=== PATIENT | male | born 1960 | race Hispanic/Latino ===

== ENCOUNTER 2020-08-02 08:55 | Emergency (ER) | payer MEDICARE ==
[2020-08-02 09:17] LABS: BASOPHILS % (AUTO) 0.8 % (0.0-5.0); EOSINOPHILS % (AUTO) 1.7 % (0.0-8.0); HEMATOCRIT 43.9 % (42-54); LYMPHOCYTES % (AUTO) 21.6 % (21.0-51.0); MEAN CORPUSCULAR HEMOGLOBIN 29.1 pg (27.0-33.0); MEAN CORPUSCULAR HGB CONC 32.8 g/dL (32.0-36.0); MEAN CORPUSCULAR VOLUME 88.7 fL (79-99); MONOCYTES % (AUTO) 6.2 % (3.0-13.0); NEUTROPHILS % (AUTO) 69.5 % (40.0-77.0); PLATELET COUNT (AUTO) 237 K/uL (130-400); RED BLOOD CELL COUNT(AUTO) 4.95 MIL/uL (4.50-6.20); RED CELL DISTRIBUTION WIDTH 13.8 % (11.0-15.5); WHITE BLOOD COUNT (AUTO) 8.3 K/uL (4.8-10.8)
[2020-08-02 09:23] LABS: POTASSIUM 4.1 mmol/L (3.5-5.1)
[2020-08-02 09:29] LABS: ALBUMIN 3.5 g/dL (3.5-5.0); BILIRUBIN,TOTAL 0.4 mg/dL (0.2-1.0); TOTAL PROTEIN, SERUM 6.7 g/dL (6.0-8.3)
[2020-08-02 10:18] LABS: CREATINE KINASE, TOTAL 136 U/L (21-232)
[2020-08-02 10:20] LABS: ACETAMINOPHEN < 1 mcg/mL (10-29); ALCOHOL, BLOOD < 3 mg/dL (0-10); SALICYLATE < 2.8 mg/dL (2.8-20.0)
[2020-08-02 10:44] LABS: BILIRUBIN,URINE Negative (NEGATIVE); COLOR,URINE Yellow (YELLOW); GLUCOSE, URINE (UA) Negative (NEGATIVE); KETONES,URINE Negative (NEGATIVE); LEUKOCYTE ESTERASE ,URINE Negative (NEGATIVE); NITRATE,URINE Negative (NEGATIVE); OCCULT BLOOD,URINE Negative (NEGATIVE); PROTEIN,URINE Negative (NEGATIVE)
[2020-08-02 10:51] LABS: AMPHET/METH SCREEN,URINE NEGATIVE (NEGATIVE); BARBITURATE SCREEN, URINE NEGATIVE (NEGATIVE); BENZODIAZEPINES SCREEN,URINE POSITIVE (NEGATIVE); CANNABINOID SCREEN,URINE NEGATIVE (NEGATIVE); COCAINE SCREEN,URINE NEGATIVE (NEGATIVE); OPIATE SCREEN,URINE NEGATIVE (NEGATIVE); PHENCYCLIDINE SCREEN,URINE NEGATIVE (NEGATIVE)
[2020-08-02 11:22] LABS: APPEARANCE,URINE CLEAR (CLEAR)
== END 2020-08-02 12:38 | disposition home or self-care (01) ==
LOC: EDH 08:55
DX: R40.4 Transient alteration of awareness (principal); E11.9 Type 2 diabetes mellitus without complications; I10 Essential (primary) hypertension; Z79.899 Other long term (current) drug therapy
CPT/HCPCS: 36415; 70450; 80053; 80305; 81003; 82140; 82550; 84484; 85025; 93005; 99285; G0481

== ENCOUNTER 2020-08-03 07:08 | Emergency (ER) | payer MEDICARE, OTHER ==
[2020-08-03 08:42] LABS: APPEARANCE,URINE Clear (CLEAR); BILIRUBIN,URINE Negative (NEGATIVE); COLOR,URINE Yellow (YELLOW); GLUCOSE, URINE (UA) Negative (NEGATIVE); KETONES,URINE Negative (NEGATIVE); LEUKOCYTE ESTERASE ,URINE Trace (NEGATIVE); NITRATE,URINE Negative (NEGATIVE); OCCULT BLOOD,URINE Negative (NEGATIVE); PH,URINE 6.5 (5.0-8.0); PROTEIN,URINE Negative (NEGATIVE)
[2020-08-03 08:48] LABS: BASOPHILS % (AUTO) 0.7 % (0.0-5.0); EOSINOPHILS % (AUTO) 1.7 % (0.0-8.0); HEMATOCRIT 43.9 % (42-54); LYMPHOCYTES % (AUTO) 20.9 % (21.0-51.0); MEAN CORPUSCULAR HEMOGLOBIN 29.4 pg (27.0-33.0); MEAN CORPUSCULAR HGB CONC 33.3 g/dL (32.0-36.0); MEAN CORPUSCULAR VOLUME 88.3 fL (79-99); MONOCYTES % (AUTO) 4.6 % (3.0-13.0); NEUTROPHILS % (AUTO) 71.8 % (40.0-77.0); PLATELET COUNT (AUTO) 241 K/uL (130-400); RED BLOOD CELL COUNT(AUTO) 4.97 MIL/uL (4.50-6.20); RED CELL DISTRIBUTION WIDTH 13.8 % (11.0-15.5); WHITE BLOOD COUNT (AUTO) 7.6 K/uL (4.8-10.8)
[2020-08-03 08:48] LABS: BACTERIA,URINE Rare /HPF (None Seen); RBC,URINE 0-1 /HPF (0-1); SQUAMOUS EPITHELIAL CELL,UR Rare /HPF (0-2); WBC,URINE 0-1 /HPF (0-1)
[2020-08-03 08:53] LABS: AMPHET/METH SCREEN,URINE NEGATIVE (NEGATIVE); BARBITURATE SCREEN, URINE NEGATIVE (NEGATIVE); BENZODIAZEPINES SCREEN,URINE POSITIVE (NEGATIVE); CANNABINOID SCREEN,URINE NEGATIVE (NEGATIVE); COCAINE SCREEN,URINE NEGATIVE (NEGATIVE); OPIATE SCREEN,URINE NEGATIVE (NEGATIVE); PHENCYCLIDINE SCREEN,URINE NEGATIVE (NEGATIVE)
[2020-08-03 09:52] LABS: CARBON DIOXIDE 30 mmol/L (21-32); CHLORIDE 102 mmol/L (101-111); CREATININE 0.9 mg/dL (0.5-1.5); GLOMERULAR FILTR. RATE CALC 91 mL/min (>60); GLUCOSE,RANDOM 126 mg/dL (70-105); POTASSIUM 3.9 mmol/L (3.5-5.1); SODIUM SERUM 137 mmol/L (136-145); UREA NITROGEN, BLOOD 12 mg/dL (7-18)
[2020-08-03 09:56] LABS: ALANINE AMINOTRANSFERASE 65 U/L (12-78); ALBUMIN 3.7 g/dL (3.5-5.0); ASPARTATE AMINOTRANSFERASE 32 U/L (10-37); BILIRUBIN,TOTAL 0.5 mg/dL (0.2-1.0)
[2020-08-03 09:57] LABS: SALICYLATE < 2.8 mg/dL (2.8-20.0)
[2020-08-03 09:58] LABS: ACETAMINOPHEN < 1 mcg/mL (10-29); ALCOHOL, BLOOD < 3 mg/dL (0-10)
== END 2020-08-03 13:45 | disposition home or self-care (01) ==
LOC: EDH 07:08
DX: F32.9 Major depressive disorder, single episode, unspecified (principal); F41.9 Anxiety disorder, unspecified; E11.9 Type 2 diabetes mellitus without complications; E78.00 Pure hypercholesterolemia, unspecified; I10 Essential (primary) hypertension; Z72.0 Tobacco use
CPT/HCPCS: 36415; 80053; 80305; 81001; 85025; 99283; G0481

== ENCOUNTER 2020-08-26 13:59 | Emergency (ER) | payer MEDICARE, OTHER ==
[2020-08-26 14:57] LABS: BASOPHILS % (AUTO) 0.3 % (0.0-5.0); EOSINOPHILS % (AUTO) 0.2 % (0.0-8.0); HEMATOCRIT 42.4 % (42-54); LYMPHOCYTES % (AUTO) 19.7 % (21.0-51.0); MEAN CORPUSCULAR HEMOGLOBIN 29.6 pg (27.0-33.0); MEAN CORPUSCULAR HGB CONC 33.3 g/dL (32.0-36.0); MEAN CORPUSCULAR VOLUME 88.9 fL (79-99); MONOCYTES % (AUTO) 3.2 % (3.0-13.0); NEUTROPHILS % (AUTO) 76.3 % (40.0-77.0); PLATELET COUNT (AUTO) 199 K/uL (130-400); RED BLOOD CELL COUNT(AUTO) 4.77 MIL/uL (4.50-6.20); RED CELL DISTRIBUTION WIDTH 13.1 % (11.0-15.5); WHITE BLOOD COUNT (AUTO) 6.2 K/uL (4.8-10.8)
[2020-08-26 15:09] LABS: CARBON DIOXIDE 26 mmol/L (21-32); CHLORIDE 104 mmol/L (101-111); CREATININE 0.9 mg/dL (0.5-1.5); GLOMERULAR FILTR. RATE CALC 91 mL/min (>60); GLUCOSE,RANDOM 115 mg/dL (70-105); POTASSIUM 4.3 mmol/L (3.5-5.1); SODIUM SERUM 139 mmol/L (136-145); UREA NITROGEN, BLOOD 16 mg/dL (7-18)
[2020-08-26 15:13] LABS: ALANINE AMINOTRANSFERASE 29 U/L (12-78); ALBUMIN 3.4 g/dL (3.5-5.0); ASPARTATE AMINOTRANSFERASE 16 U/L (10-37); BILIRUBIN,TOTAL 0.2 mg/dL (0.2-1.0); CREATINE KINASE, TOTAL 54 U/L (21-232)
[2020-08-26 15:14] LABS: ACETAMINOPHEN < 1 mcg/mL (10-29); SALICYLATE < 2.8 mg/dL (2.8-20.0)
[2020-08-26 15:35] LABS: INR 0.96 (0.85-1.15); PARTIAL THROMBOPLASTIN TIME 25.1 SEC (26.3-35.5); PROTHROMBIN TIME 10.4 SEC (9.6-11.6)
[2020-08-26 15:58] LABS: APPEARANCE,URINE Clear (CLEAR); BILIRUBIN,URINE Negative (NEGATIVE); COLOR,URINE Yellow (YELLOW); GLUCOSE, URINE (UA) Negative (NEGATIVE); KETONES,URINE Negative (NEGATIVE); LEUKOCYTE ESTERASE ,URINE Negative (NEGATIVE); NITRATE,URINE Negative (NEGATIVE); OCCULT BLOOD,URINE Negative (NEGATIVE); PH,URINE 5.5 (5.0-8.0); PROTEIN,URINE Negative (NEGATIVE); UROBILINOGEN,URINE 0.2 mg/dL (0.2-1.0)
[2020-08-26 16:40] LABS: AMPHET/METH SCREEN,URINE NEGATIVE (NEGATIVE); BARBITURATE SCREEN, URINE NEGATIVE (NEGATIVE); BENZODIAZEPINES SCREEN,URINE POSITIVE (NEGATIVE); CANNABINOID SCREEN,URINE NEGATIVE (NEGATIVE); COCAINE SCREEN,URINE NEGATIVE (NEGATIVE); OPIATE SCREEN,URINE NEGATIVE (NEGATIVE); PHENCYCLIDINE SCREEN,URINE NEGATIVE (NEGATIVE)
== END 2020-08-26 23:42 | disposition short-term general hospital (02) ==
LOC: EDH 13:59
DX: T42.4X2A Poisoning by benzodiazepines, intentional self-harm, initial encounter (principal); F32.2 Major depressive disorder, single episode, severe without psychotic features; E13.8 Other specified diabetes mellitus with unspecified complications; I10 Essential (primary) hypertension; F41.9 Anxiety disorder, unspecified; Y92.89 Other specified places as the place of occurrence of the external cause
CPT/HCPCS: 36415; 80053; 80305; 81003; 82550; 84484; 85025; 85610; 85730; 93005; 99285; G0481

== ENCOUNTER 2022-02-08 06:11 | Day surgery (SDC) | payer OTHER ==
[2022-02-06 11:22] LABS: BASOPHILS % (AUTO) 0.8 % (0.0-5.0); EOSINOPHILS % (AUTO) 3.4 % (0.0-8.0); HEMATOCRIT 42.3 % (42-54); MEAN CORPUSCULAR HEMOGLOBIN 29.6 pg (27.0-33.0); MEAN CORPUSCULAR HGB CONC 33.3 g/dL (32.0-36.0); MEAN CORPUSCULAR VOLUME 88.7 fL (79-99); MONOCYTES % (AUTO) 4.5 % (3.0-13.0); PLATELET COUNT (AUTO) 218 K/uL (130-400); RED BLOOD CELL COUNT(AUTO) 4.77 MIL/uL (4.50-6.20); RED CELL DISTRIBUTION WIDTH 13.2 % (11.0-15.5); WHITE BLOOD COUNT (AUTO) 7.2 K/uL (4.8-10.8)
[2022-02-06 11:30] LABS: CREATININE 0.8 mg/dL (0.5-1.5); POTASSIUM 3.9 mmol/L (3.5-5.1)
[2022-02-07 11:04] VITALS: BP 129/68
[2022-02-08] VITALS (16 sets, daily range): BP systolic 122–147; BP diastolic 65–97
[~2022-02-08] VITALS: Ht 172.7 cm; Wt 99.2 kg
[~2022-02-08 06:11] MED LIST: ALPR0.5T PO; BUPR-49 PO; BUSP15TA3 PO; CARV6.25 PO; CILO50TA PO; CITA-108 PO; GABA-529 PO; HYDR25TA PO; IBUP-2071 PO; LISI40TA9 PO; METF-444 PO; TRAZ-187 PO
[2022-02-08] MEDS ORDERED: 0.9%NACL 1000ML 1,000 ML IV ONE (06:29)
[2022-02-08] MEDS ORDERED: CEFAZOLIN SODIUM 1 GM VIAL ONE (06:29)
[2022-02-08] MEDS ORDERED: CEFAZOLIN SODIUM 1 GM VIAL IVP ONE (08:00)
[2022-02-08] MEDS ORDERED: PROPOFOL 10 MG/ML 20ML VIAL IV ONE (08:31)
[2022-02-08] MEDS ORDERED: FENTANYL CITRATE PF 50 MCG/1 ML 2ML VIAL ONE (08:31)
[2022-02-08] MEDS ORDERED: SUCCINYLCHOLINE CHLORIDE 20 MG/ML 10 ML VIAL ONE (08:31)
[2022-02-08] MEDS ORDERED: LIDOCAINE PF 100MG/5ML (2%) SYRINGE 5ML ONE (08:31)
[2022-02-08] MEDS ORDERED: ROCURONIUM 10MG/1ML SYR 10 MG/ML ML ONE (08:32)
[2022-02-08] MEDS ORDERED: MIDAZOLAM HCL 1 MG/ML 2ML VIAL ONE (08:32)
[2022-02-08] MEDS ORDERED: CEFAZOLIN SODIUM 2 GM VIAL IV ONE (08:41)
[2022-02-08] MEDS ORDERED: EPINEPHRINE 1 MG/ML 30ML VIAL IJ ONE ×2 (08:53→09:17)
[2022-02-08] MEDS ORDERED: EPHEDRINE SULFATE 50 MG/ML AMPULE ONE (09:37)
[2022-02-08] MEDS ORDERED: HYDR-4060 PO (10:26)
[2022-02-08] MEDS ORDERED: CEPH500B PO (10:26)
[2022-02-08] MEDS ORDERED: GLYCOPYRROLATE 1 MG/5 ML SYRINGE ONE (10:27)
[2022-02-08] MEDS ORDERED: NEOSTIGMINE 5MG/5ML SYR IV ONE (10:27)
[2022-02-08] MEDS ORDERED: MEPERIDINE-PF 25 MG/ML SYG ONE ×2 (10:42→11:07)
[2022-02-08] MEDS ORDERED: KETOROLAC 30MG VIAL (30MG/ML) ONE (10:42)
== END 2022-02-08 13:00 | disposition home or self-care (01) ==
LOC: DAH 06:11
PROVIDERS: ATTEND Orthopaedic Surgery
DX: M19.012 Primary osteoarthritis, left shoulder (principal); M75.42 Impingement syndrome of left shoulder; M65.812 Other synovitis and tenosynovitis, left shoulder; G89.29 Other chronic pain; E66.01 Morbid (severe) obesity due to excess calories; E11.9 Type 2 diabetes mellitus without complications; I10 Essential (primary) hypertension; F41.9 Anxiety disorder, unspecified; F32.9 Major depressive disorder, single episode, unspecified; E78.5 Hyperlipidemia, unspecified; G47.00 Insomnia, unspecified; Z79.01 Long term (current) use of anticoagulants; Z88.0 Allergy status to penicillin; Z79.899 Other long term (current) drug therapy
CPT/HCPCS: 29820; 29824; 29826; 36415; 64415; 76942; 80048; 82948 ×2; 85025; 87635; A4213; A4215; A4221; A4222; A4223; A4565; A4600; A4649; A4663; A4930 ×3; A5120; A6204; C9803; G0168; J0171 ×2; J0330; J0690 ×2; J1885; J2001; J2175 ×2; J2250; J2704; J2710; J3010; J3490 ×2; J7030 ×2

== ENCOUNTER → 2022-04-27 | Outpatient (CLI) | payer OTHER ==
[~2022-04-27] MED LIST changes: +CEPH500B PO; +GADOTERATE MEGLUMINE 10 MMOL/20 ML VIAL IV ONE; +HYDR-4060 PO
== END | disposition home or self-care (01) ==
LOC: RAH 12:47
PROVIDERS: ATTEND Family Medicine
DX: M47.812 Spondylosis without myelopathy or radiculopathy, cervical region (principal); M48.02 Spinal stenosis, cervical region; M50.30 Other cervical disc degeneration, unspecified cervical region
CPT/HCPCS: 72156; A9575

== ENCOUNTER 2022-06-01 13:03 | Emergency (ER) | payer OTHER ==
[~2022-06-01] VITALS: Ht 172.7 cm; Wt 98.4 kg
[~2022-06-01 13:03] MED LIST changes: -GADOTERATE MEGLUMINE 10 MMOL/20 ML VIAL IV ONE
[2022-06-01 13:06] VITALS: BP 116/72
== END 2022-06-01 15:51 | disposition left against medical advice (07) ==
LOC: EDH 13:03
DX: M54.2 Cervicalgia (principal); Z53.21 Procedure and treatment not carried out due to patient leaving prior to being seen by health care provider

== ENCOUNTER 2022-12-31 20:13 | Emergency (ER) | payer OTHER ==
[~2022-12-31] VITALS: Ht 172.7 cm; Wt 100.7 kg
[~2022-12-31 20:13] MED LIST changes: -CILO50TA PO; +CILO50TA2 PO
[2022-12-31] MEDS ORDERED: 0.9%NACL 1000ML 1,000 ML IV SCH (20:30)
[2022-12-31 21:02] LABS: BASOPHILS % (AUTO) 0.6 % (0.0-5.0); EOSINOPHILS % (AUTO) 1.7 % (0.0-8.0); HEMATOCRIT 42.4 % (42-54); LYMPHOCYTES % (AUTO) 25.3 % (21.0-51.0); MEAN CORPUSCULAR HGB CONC 33.5 g/dL (32.0-36.0); MEAN CORPUSCULAR VOLUME 89.5 fL (79-99); MONOCYTES % (AUTO) 4.7 % (3.0-13.0); NEUTROPHILS % (AUTO) 67.4 % (40.0-77.0); PLATELET COUNT (AUTO) 197 K/uL (130-400); RED BLOOD CELL COUNT(AUTO) 4.74 MIL/uL (4.50-6.20); RED CELL DISTRIBUTION WIDTH 12.8 % (11.0-15.5); WHITE BLOOD COUNT (AUTO) 7.2 K/uL (4.8-10.8)
[2022-12-31 21:13] LABS: CREATININE 0.9 mg/dL (0.5-1.5); POTASSIUM 3.4 mmol/L (3.5-5.1)
[2022-12-31 21:18] LABS: ALBUMIN 3.7 g/dL (3.5-5.0); TOTAL PROTEIN, SERUM 6.7 g/dL (6.0-8.3)
[2022-12-31 21:18] LABS: APPEARANCE,URINE CLEAR (CLEAR); BILIRUBIN,URINE NEGATIVE (NEGATIVE); COLOR,URINE YELLOW (YELLOW); GLUCOSE, URINE (UA) NEGATIVE (NEGATIVE); KETONES,URINE NEGATIVE (NEGATIVE); LEUKOCYTE ESTERASE ,URINE NEGATIVE Leu/uL (NEGATIVE); MUCUS,URINE RARE LPF (None Seen); NITRATE,URINE NEGATIVE (NEGATIVE); OCCULT BLOOD,URINE NEGATIVE (NEGATIVE); PH,URINE 5.5 (5.0-8.0); PROTEIN,URINE NEGATIVE (NEGATIVE); RBC,URINE 0-1 /HPF (0-1); SQUAMOUS EPITHELIAL CELL,UR RARE /HPF (0-2); UROBILINOGEN,URINE 0.2 mg/dL (0.2-1.0)
[2022-12-31 22:23] VITALS: BP 132/70
[2022-12-31] MEDS ORDERED: POTASSIUM BICARB/CIT AC 25 MEQ TABLET.EFF PO ONE (22:30)
== END 2022-12-31 22:35 | disposition home or self-care (01) ==
LOC: EDH 20:13
DX: R53.1 Weakness (principal); E87.6 Hypokalemia; I10 Essential (primary) hypertension; E78.00 Pure hypercholesterolemia, unspecified; E11.9 Type 2 diabetes mellitus without complications; Z79.1 Long term (current) use of non-steroidal anti-inflammatories (NSAID); Z79.84 Long term (current) use of oral hypoglycemic drugs; Z79.899 Other long term (current) drug therapy; Z20.822 Contact with and (suspected) exposure to COVID-19
CPT/HCPCS: 99285; 71045; 87635; 84484; 80053; 83690; 85025; 82948; 81001; 36415; 93005; C9803

== ENCOUNTER 2023-07-25 06:16 | Observation (INO) | payer OTHER ==
[2023-07-17 15:20] LABS: APPEARANCE,URINE CLEAR (CLEAR); BILIRUBIN,URINE NEGATIVE (NEGATIVE); COLOR,URINE YELLOW (YELLOW); GLUCOSE, URINE (UA) NEGATIVE (NEGATIVE); KETONES,URINE NEGATIVE (NEGATIVE); LEUKOCYTE ESTERASE ,URINE 25 Leu/uL (NEGATIVE); NITRATE,URINE NEGATIVE (NEGATIVE); OCCULT BLOOD,URINE NEGATIVE (NEGATIVE); PROTEIN,URINE 30 mg/dL (NEGATIVE); UROBILINOGEN,URINE 3 mg/dL (0.2-1.0)
[2023-07-17 15:21] LABS: ADD UA MICROSCOPIC YES
[2023-07-17 15:23] LABS: BACTERIA,URINE RARE /HPF (None Seen); MUCUS,URINE MOD LPF (None Seen); SQUAMOUS EPITHELIAL CELL,UR RARE /HPF (0-2)
[2023-07-17 16:44] VITALS: BP 180/100; PULSE 71; RESP 20
[2023-07-23 11:05] LABS: BASOPHILS # (AUTO) 0.04 K/uL (0.00-0.20); BASOPHILS % (AUTO) 0.5 % (0.0-5.0); EOSINOPHILS # (AUTO) 0.07 K/uL (0.00-0.70); EOSINOPHILS % (AUTO) 0.8 % (0.0-8.0); HEMATOCRIT 48.3 % (42-54); IMMATURE GRANULOCYTE ABSOLUTE 0.03 K/uL (0-1); LYMPHOCYTES # (AUTO) 2.1 K/uL (1.0-4.8); LYMPHOCYTES % (AUTO) 24.4 % (21.0-51.0); MEAN CORPUSCULAR HEMOGLOBIN 30.7 pg (27.0-33.0); MEAN CORPUSCULAR HGB CONC 33.5 g/dL (32.0-36.0); MEAN CORPUSCULAR VOLUME 91.7 fL (79-99); MONOCYTES # (AUTO) 0.6 K/uL (0.1-1.0); MONOCYTES % (AUTO) 7.1 % (3.0-13.0); NEUTROPHILS # (AUTO) 5.7 K/uL (1.8-7.7); NEUTROPHILS % (AUTO) 66.8 % (40.0-77.0); PLATELET COUNT (AUTO) 281 K/uL (130-400); RED BLOOD CELL COUNT(AUTO) 5.27 MIL/uL (4.50-6.20); RED CELL DISTRIBUTION WIDTH 12.9 % (11.0-15.5); WHITE BLOOD COUNT (AUTO) 8.5 K/uL (4.8-10.8)
[2023-07-23 11:15] LABS: ALBUMIN 3.6 g/dL (3.5-5.0); CARBON DIOXIDE 32 mmol/L (21-32); CHLORIDE 102 mmol/L (101-111); GLOMERULAR FILTR. RATE CALC 84 mL/min (>90); GLUCOSE,RANDOM 119 mg/dL (70-105); POTASSIUM 3.9 mmol/L (3.5-5.1); SODIUM SERUM 139 mmol/L (136-145); UREA NITROGEN, BLOOD 17 mg/dL (7-18)
[2023-07-23 11:16] LABS: INR 0.96 (0.85-1.15); PROTHROMBIN TIME 10.4 SEC (9.6-11.6)
[2023-07-23 11:31] VITALS: BP 138/78; PULSE 86; RESP 14
[~2023-07-25] VITALS: Ht 172.7 cm; Wt 96.3 kg
[2023-07-25] VITALS (23 sets, daily range): BP systolic 97–126; BP diastolic 54–73; PULSE 91–110; RESP 15–20; O2SAT 2–3
[~2023-07-25 06:16] MED LIST changes: -ALPR0.5T PO; +BUPR-317 PO; -BUPR-49 PO; +CARV12.511 PO; -CARV6.25 PO; -CEPH500B PO; +CLON0.5T4 PO; -GABA-529 PO; +GABA300C PO; -HYDR-4060 PO; -IBUP-2071 PO; -METF-444 PO; +PIOG15TA66 PO; +SIMV-46 PO; +TRAZ-185 PO; -TRAZ-187 PO
[2023-07-25] MEDS ORDERED: 0.9%NACL 1000ML 1,000 ML IV ONE (06:42)
[2023-07-25] MEDS: CEFAZOLIN SODIUM 2 GM VIAL ONE ×2 (06:48→09:44)
[2023-07-25] MEDS ORDERED: ROPIVACAINE 0.5% 5MG/ML 30ML IJ ONE (08:18)
[2023-07-25] MEDS ORDERED: MIDAZOLAM HCL 1 MG/ML 2ML VIAL ONE (08:18)
[2023-07-25] MEDS ORDERED: ROCURONIUM 10MG/1ML SYR 10 MG/ML ML ONE ×2 (08:18→11:38)
[2023-07-25] MEDS ORDERED: PROPOFOL 10 MG/ML 20ML VIAL IV ONE (08:18)
[2023-07-25] MEDS ORDERED: LIDOCAINE PF 100MG/5ML (2%) SYRINGE 5ML ONE (08:18)
[2023-07-25] MEDS ORDERED: KETAMINE 50MG/ML SYRINGE 50 MG/ML DISP.SYRIN ONE (08:20)
[2023-07-25] MEDS ORDERED: TRANEXAMIC ACID 1000MG/10ML ONE (08:22)
[2023-07-25] MEDS ORDERED: CEFAZOLIN SODIUM 1 GM VIAL ONE (08:26)
[2023-07-25] MEDS ORDERED: EPHEDRINE SULFATE 50 MG/ML AMPULE ONE ×2 (09:57→11:45)
[2023-07-25] MEDS ORDERED: PHENYLEPHRINE HCL 10 MG/ML 1ML VIAL IV ONE ×2 (10:30→11:38)
[2023-07-25] MEDS ORDERED: FENTANYL CITRATE PF 50 MCG/1 ML 2ML VIAL ONE (12:28)
[2023-07-25] MEDS ORDERED: NEOSTIGMINE 5MG/5ML SYR IV ONE (12:29)
[2023-07-25] MEDS ORDERED: GLYCOPYRROLATE 1 MG/5 ML SYRINGE ONE (12:29)
[2023-07-25] MEDS ORDERED: ONDANSETRON 4MG INJ ONE (12:29)
[2023-07-25] MEDS ORDERED: DiphenhydrAMINE HCL 50 MG/ML VIAL IVP PRN (13:00)
[2023-07-25] MEDS ORDERED: CALCIUM CARB 500MG PO PRN (13:00)
[2023-07-25] MEDS ORDERED: TRAMADOL HCL 50 MG TABLET PO PRN (13:00)
[2023-07-25] MEDS ORDERED: POTASSIUM CHLORIDE 10% ELIXIR 20 MEQ/15 ML UDCUP PO PRN (13:00)
[2023-07-25] MEDS ORDERED: KETOROLAC 15MG/ML VIAL (15MG/ML) IV SCH (13:00)
[2023-07-25] MEDS ORDERED: ONDANSETRON 4MG INJ IVP PRN (13:00)
[2023-07-25] MEDS ORDERED: KCL 20 MEQ ERTAB PO PRN (13:00)
[2023-07-25] MEDS ORDERED: POTASSIUM CHLORIDE 20MEQ/100ML 100 ML IV PRN (13:00)
[2023-07-25] MEDS ORDERED: CYCLOBENZAPRINE HCL 10 MG TABLET PO PRN (13:00)
[2023-07-25] MEDS ORDERED: 0.9%NACL 1000ML 1,000 ML IV SCH (13:00)
[2023-07-25] MEDS ORDERED: FE FUMARATE/FA/MV, MIN COMB#15 1 TAB PO PRN (13:00)
[2023-07-25] MEDS ORDERED: HYDROCODONE/ACETAMINOPHEN 5/325 MG TAB PO PRN (13:00)
[2023-07-25] MEDS ORDERED: KETOROLAC 15MG/ML VIAL (15MG/ML) ONE (13:46)
[2023-07-25] MEDS ORDERED: GABAPENTIN 100 MG CAPSULE PO SCH (14:00)
[2023-07-25] MEDS ORDERED: INSULIN HUMULIN R 100 UNIT/ML 3ML SQ SCH (16:30)
[2023-07-25] MEDS ORDERED: DOCU-116 PO (16:56)
[2023-07-25] MEDS ORDERED: HYDR-4060 PO (16:56)
[2023-07-25] MEDS ORDERED: CYCL-309 PO (16:56)
[2023-07-25] MEDS ORDERED: GABA100C PO (16:56)
[2023-07-25] MEDS ORDERED: CEFAZOLIN SODIUM 2 GM VIAL IVPB SCH (18:00)
[2023-07-25] MEDS ORDERED: DOCUSATE SODIUM 100 MG CAP PO SCH (21:00)
[2023-07-26] MEDS ORDERED: POLYETHYLENE GLYCOL 3350 17 GM POWD.PACK PO SCH (09:00)
[2023-07-26] MEDS ORDERED: KETOROLAC 15MG/ML VIAL (15MG/ML) IV PRN (13:00)
[2023-07-28] MEDS ORDERED: BISACODYL 10 MG SUPP.RECT RC PRN (13:00)
== END 2023-07-25 18:30 | disposition home health service (06) ==
LOC: DAH 06:16 → DAHIP 06:17 → 4BH 14:30
PROVIDERS: ADMIT Student in an Organized Health Care Education/Training Program; ATTEND Student in an Organized Health Care Education/Training Program
DX: M19.012 Primary osteoarthritis, left shoulder (principal); I10 Essential (primary) hypertension; F41.9 Anxiety disorder, unspecified; F32.9 Major depressive disorder, single episode, unspecified; E78.5 Hyperlipidemia, unspecified; E11.9 Type 2 diabetes mellitus without complications; E66.9 Obesity, unspecified; M25.512 Pain in left shoulder; G89.29 Other chronic pain; G47.00 Insomnia, unspecified; G25.81 Restless legs syndrome; Z79.82 Long term (current) use of aspirin; Z79.84 Long term (current) use of oral hypoglycemic drugs; Z79.899 Other long term (current) drug therapy; Z98.890 Other specified postprocedural states; Z68.32 Body mass index [BMI] 32.0-32.9, adult
CPT/HCPCS: 87088; 81001; 82040; 80048; 85025; 85610; 85730; 84134; 86140; 93005; 87641; 23472; 96374; 64415; 82948 ×3; 36415; 73030; 97161; 97530; G0378 ×3; A4600; A4663; J7030 ×2; C1776; J3010; J0690 ×2; J3490 ×5; J2710; J2001; J2250; J2704; J2405; J2795; J1885; J2371 ×2; G0168; A4930 ×2; A4649 ×2; C1713; A6254; A5120; A4215; A4223; A4222; A4221

== ENCOUNTER → 2024-10-16 | Outpatient (CLI) | payer OTHER ==
[~2024-10-16] MED LIST changes: -BUPR-317 PO; +BUPR-561 PO; -CILO50TA2 PO; +CYCL-309 PO; +DOCU-116 PO; +GABA100C PO; +HYDR-4060 PO
[2024-10-16] MEDS: REGADENOSON 0.4 MG/5 ML PF SYG IVP ONE (09:59)
== END | disposition home or self-care (01) ==
LOC: SHCH 07:55
PROVIDERS: ATTEND Internal Medicine Cardiovascular Disease
DX: Z13.6 Encounter for screening for cardiovascular disorders (principal); Z79.899 Other long term (current) drug therapy
CPT/HCPCS: 78452; 93017; J2785; A9500 ×2

== ENCOUNTER 2025-06-24 05:50 | Observation (INO) | payer OTHER ==
[2025-06-23 15:26] LABS: IMMATURE GRANULOCYTE ABSOLUTE 0.01 K/uL (0-1); NUCLEATED RED BLOOD CELLS 0.0 % (0.0-0.19); PLATELET COUNT (AUTO) 218 K/uL (130-400); RED BLOOD CELL COUNT(AUTO) 4.37 MIL/uL (4.50-6.20); RED CELL DISTRIBUTION WIDTH 13.2 % (11.0-15.5); WHITE BLOOD COUNT (AUTO) 5.7 K/uL (4.8-10.8)
[2025-06-23 15:37] LABS: INR 0.97 (0.85-1.15)
[2025-06-23 15:38] VITALS: BP 142/77; PULSE 68; RESP 16; TEMP 98
[2025-06-23 15:38] LABS: CREATININE 0.7 mg/dL (0.5-1.3); GLOMERULAR FILTR. RATE CALC 102.0 mL/min (>90); GLUCOSE,RANDOM 102.0 mg/dL (70-105); SODIUM SERUM 139.0 mmol/L (136-145); UREA NITROGEN, BLOOD 12.0 mg/dL (7-18)
--- NOTE | 2025-06-23 15:39 | NUR ---
PREOP EMMANUEL CRONIN INSTRUCTED PT ON INCENTIVE SPIROMETRY
--- NOTE | 2025-06-23 18:46 | EKG ---
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
[~2025-06-24] VITALS: Ht 172.7 cm; Wt 115.2 kg
[2025-06-24] VITALS (24 sets, daily range): BP systolic 128–157; BP diastolic 67–91; PULSE 70–96; RESP 15–19; TEMP 97.4–98.6; O2SAT 98–100
[~2025-06-24 05:50] MED LIST changes: +ASPI-1443 PO; -BUPR-561 PO; +BUPR-721 PO; +CILO50TA2 PO; -CYCL-309 PO; -DOCU-116 PO; -GABA100C PO; -HYDR-4060 PO; +IBUP-2077 PO; +LISI40TA15 PO; -LISI40TA9 PO; -TRAZ-185 PO; +TRAZ-187 PO; +tramadol PO
[2025-06-24] MEDS ORDERED: LIDOCAINE PF 100MG/5ML (2%) SYRINGE 5ML ONE (06:55)
[2025-06-24] MEDS ORDERED: TRANEXAMIC ACID 1000MG/10ML ONE ×2 (08:03→09:15)
[2025-06-24] MEDS ORDERED: HYDROcodone/APAP 5/325 1 TAB TABLET PO PRN (09:30)
[2025-06-24] MEDS ORDERED: PoTASSium chl 10% ELIXIR 20MEQ 20 MEQ/15 ML UDCUP PO PRN (09:30)
[2025-06-24] MEDS ORDERED: FERROUS FUMARATE 324 MG TABLET PO PRN (09:30)
--- NOTE | 2025-06-24 09:46 | OP ---
Operative Note: DATE OF PROCEDURE: 06/24/25 PREOPERATIVE DIAGNOSIS: Left knee osteoarthritis. POSTOPERATIVE DIAGNOSIS: Left knee osteoarthritis. PROCEDURE PERFORMED: Left knee total knee arthroplasty. SURGEON: Teodora Mulligan MD TELEGRAPH REPEATER INSTALLER: Pat López and Lisa Salas. ANESTHESIA: General with adductor canal block. ANESTHESIA: IRVIN colbert. ESTIMATED BLOOD LOSS: 50cc. COMPLICATIONS: None. DRAINS: None. SPECIMENS REMOVED: resected bone. Not sent to pathology. IMPLANTS: [employer] II BCS size 6 Oxinium femur, size 5 tibial base plate, 32 mm patella, 9 mm polyethylene STATEMENT OF MEDICAL NECESSITY: The patient is a 64-year-old male who suffers from left knee osteoarthritis failing conservative management. After discussion of the risks, benefits, and alternatives with the patient, they voluntarily agreed to undergo the aforementioned procedure. DESCRIPTION OF PROCEDURE: Patient was properly identified in the preoperative holding area. Surgical site marking was verified and surgery consent reviewed. The patient was then taken to the operating room and placed in supine position on the OR table. After induction of general anesthesia, preoperative antibiotics were given, all bony prominences were well-padded, and a well padded tourniquet was applied but not inflated at this time. The left lower extremity was then p repped and draped in usual sterile fashion. Surgical time out was done verifying correct surgery, side, site, and location to be performed. We then began the procedure by exsanguinating the limb using an Esmarch and inflating the tourniquet to 350 mmHg. At this point, we made an anterior midline incision using a 10 blade, coming down sharply the level of the fascia. Skin flaps were elevated medially and laterally. We then obtained a clean 10 blade and performed a standard medial parapatellar arthrotomy. We excised the infrapatellar fat pad. We performed our soft tissue releases off of the tibia. We transected the ACL and removed the anterior portion of the medial & lateral meniscus. We then brought the knee into hyperflexion with the patella everted. We used our entry reamer to enter the femoral canal. We then placed our intramedullary cutting guide for our distal femoral cutting block. We then performed our distal femoral osteotomy ensuring appropriate rotation and removed the bony wafer. We then removed these pins and block and then used jig 2 to size the distal femur with the after mentioned size found. We then placed our 5-in-1 cutting block in 3 degrees of external rotation and took our 5 cuts ensuring to protect the patellar tendon and the collateral ligaments. We then removed the cutting block and our bony fragments using a curved osteotome. We then placed our PCL retractor subluxating the tibia anteriorly. Using an extra medullary tibial cutting guide, we hung the block for our proximal tibial cut taking 2 mm off the more diseased portion. Prior to pinning this block in place, we ensured appropriate varus/valgus alignment and posterior slope similar to the [place] slope of the patient's knee. We then performed our proximal tibial osteotomy and removed the bony wafer using Bovie electrocautery to release any remaining soft tissue attachments. We then used our tibial sizing paddle and checked once more for varus & valgus alignment and found this to be appropriate. At this point, we pinned our tibial paddle in place. We then removed the PCL retractor and subluxated the tibia posteriorly while we placed our femoral trial component. We then finished preparing the notch with the reamer and box chisel. The notch portion of the trial femoral component was then placed. A posterior stabilized polyethylene, size 9 trial was placed. The knee was then taken through range of motion and found to have stable full range of motion. We then placed a bump under the ankle and everted the patella to perform our freehand cut of the undersurface the patella. We then sized our patella and reamed to the lug holes for this. We placed our trial patellar component and begin to take the knee through range of motion. The patella had appropriate tracking. At this point we began removing our trial components and punched the tibial keel prior to removing our tibial trial component. Final components were opened and cement was mixed on the back table while we injected local cocktail in the posterior capsule. We then thoroughly irrigated out the bone and dried the bony surfaces. We cemented our tibial component in place ensuring to remove excess cement and placed our trial polyethylene. We then cemented our femoral component in place once again taking time to ensure excess cement was removed leg was brought into full extension to help squeeze the excess cement from around the femoral component. We then brought the knee back in a flexion to remove this portion of the cement at this point we placed the ankle in a bump thoroughly irrigated off the patellar component and cemented our patellar component in standard fashion again removing excess cement. While we waited for the cement to cure, we thoroughly irrigated out the wound with normal saline. Once our cement had cured, we took the knee through a range of motion and found full and stable range of motion. We then elected to use the size 9 polyethylene and removed our trial polyethylene. We impacted our final polyethylene component in place in standard fashion and took the knee through a range of motion check once more. This was satisfactory so we began to repair the arthrotomy using #5 Ethibond and #1 Vicryl in interrupted [id number] fashion. Subcutaneous tissue was repaired using 2-0 Vicryl. Running subcuticular 3-0 Monocryl stitch with Dermabond placed over this for the skin. We then applied a foam barrier dressing and a pressure dressing consisting of 4 x 4's fluffs and an Dalton wrap. The tourniquet was then deflated. Patient was awakened from anesthesia, and they were taken to the recovery room in stable condition. TEODORA MULLIGAN MD Jun 24, 2025 09:46
--- NOTE | 2025-06-24 10:45 | NUR ---
REPORT RECEIVED FROM MENG DAVIS FROM PACU. PATIENT ARRIVED TO THE UNIT NO SIGNS OF DISTRESS NOTED. SCDS SET UP ON PATIENT WELL IV FLUIDS. ICE BAG APPLIED ON PATIENTS LEFT KNEE. PENDING PT EVAL. POST OP VITALS STARTED. PEDAL PULSES STRONG AND PRESENT.
[2025-06-24] MEDS: 0.9%NACL 1000ML 1,000 ML IV ONE (11:02)
--- NOTE | 2025-06-24 11:04 | HMCIMG ---
EXAM: CR left knee, 2 View. CLINICAL HISTORY: S/P LEFT TKA SURGERY COMPARISON: None provided. FINDINGS: Cemented left total knee arthroplasty is in near-anatomic alignment with no periprosthetic fracture appreciated. There is edema surrounding the left knee. There is a knee joint effusion and postsurgical changes noted. IMPRESSION: Left total knee arthroplasty is near anatomic alignment with no periprosthetic fracture appreciated. /[place]
[2025-06-24] MEDS: 0.9%NACL 1000ML 1,000 ML IV SCH (11:29)
--- NOTE | 2025-06-24 14:05 | DS ---
Discharge Summary Hospital Course Summary: The patient was admitted to the hospital postoperatively on 06/24/2025 after undergoing left total knee arthroplasty. They did well with routine postoperative pain control. They worked well with physical therapy. They developed some acute blood loss anemia but remained asymptomatic. The hospital course was otherwise uncomplicated. They were subsequently able to be discharged on postoperative day 1 once discharge arrangements were made with home health physical therapy. Supervisor Histology(s): None Procedure(s): Left total knee arthroplasty, 06/24/2025 Assessment/Plan: ASSESSMENT: Status post left total knee arthroplasty doing well Acute blood loss anemia asymptomatic PLAN: See discharge instructions Discharge Instructions: Begin working with home health physical therapy. Dressing may be removed 06/26/2025 and left open to air. Showers ok allowing soap and water to run over the wound. Pat dry. Do not submerge wound in tub/po ol. Do not apply ointments. Do not apply Betadine. Do not apply peroxide. Ice packs to decrease pain/swelling. Prescriptions have been sent to the pharmacy: *[place] 5/325mg 1-2 tab every 6 hours as needed for severe pain. (please call for refills) Cyclobenzaprine 5mg 1 tab every 8 hours as needed for muscle spasm pain. Colace 100mg 1 tab orally twice a day as needed for constipation. Aspirin 325mg twice a day for 30 days to prevent blood clots. Call for a follow-up appointment in 2-3 weeks at [facility]. Home Medications: Active Scripts Hydrocodone/Acetaminophen (Hydrocodon-Acetaminophen 5-325) 5 Mg-325 Mg Tablet, 1-2 TAB PO Q6HPRN PRN for SEVERE PAIN (7-10), #56 TAB 0 Refills Prov:ANTOINETTE MILES MD 06/25/25 Reported Medications [tramadol] No Conflict Check, 50 MG PO Q8H PRN for PAIN 06/23/25 Trazodone HCl (Trazodone HCl) 100 Mg Tablet, 100 MG PO HS, TAB 06/23/25 Aspirin (Aspirin EC) 81 Mg Tablet.dr, 81 MG PO AM, TAB 06/23/25 Cilostazol (Cilostazol) 50 Mg Tablet, 50 MG PO AM, TAB 06/23/25 Ibuprofen (Ibuprofen 800 mg Tab) 800 Mg Tab, 800 MG PO TID PRN for PAIN, TAB 8/26/25 Simvastatin (Simvastatin) 40 Mg Tablet, 40 MG PO HS, TAB 07/23/23 Pioglitazone HCl (Pioglitazone HCl) 15 Mg Tablet, 15 MG PO DAILY, TAB 07/23/23 Clonazepam (Clonazepam) 0.5 Mg Tablet, 0.5 MG PO BID PRN for ANXIETY/AGITATION, TAB 07/23/23 Carvedilol (Carvedilol) 12.5 Mg Tablet, 12.5 MG PO BID, TAB 07/23/23 Bupropion HCl (Bupropion Xl) 300 Mg Tab.er.24h, 300 MG PO DAILY, TAB 07/23/23 Gabapentin (Neurontin) 300 Mg Capsule, 300 MG PO TID, CAP 07/23/23 Hydrochlorothiazide (Hydrochlorothiazide) 25 Mg Tablet, 25 MG PO DAILY, TAB 02/07/22 Citalopram Hydrobromide (Citalopram HBr) 40 Mg Tablet, 40 MG PO HS, TAB 02/07/22 Buspirone HCl (Buspirone HCl) 15 Mg Tablet, 15 MG PO TID, TAB 02/07/22 Lisinopril (Lisinopril) 40 Mg Tablet, 40 MG PO DAILY, TAB 02/07/22 Discontinued Reported Medications Trazodone HCl (Trazodone HCl) 50 Mg Tablet, 75 MG PO HS PRN for SLEEP, TAB 07/23/23 Discontinued Scripts Docusate Sodium (Colace) 100 Mg Capsule, 100 MG PO BID PRN for CONSTIPATION for 30 Days, #60 CAP 0 Refills Prov:ANTOINETTE MILES MD 07/25/23 Hydrocodone/Acetaminophen (Hydrocodon-Acetaminophen 5-325) 5 Mg-325 Mg Tablet, 1-2 TAB PO Q6H PRN for MODERATE/SEVERE PAIN LEVEL, #56 TAB 0 Refills Prov:ANTOINETTE MILES MD 07/25/23 Gabapentin (Neurontin) 100 Mg Capsule, 100 MG PO TID, #90 CAP 0 Refills Prov:ANTOINETTE MILES MD 07/25/23 Cyclobenzaprine HCl (Cyclobenzaprine HCl) 10 Mg Tablet, 5 MG PO Q8H PRN for MUSCLE SPASMS, #45 TAB 0 Refills Prov:ANTOINETTE MILES MD 07/25/23 ANTOINETTE MILES MD Jun 24, 2025 14:05
[2025-06-24] MEDS: GABAPENTIN 300 MG CAPSULE PO SCH (16:06)
--- NOTE | 2025-06-24 22:00 | NUR ---
AMBULATION: PT ENCOURAGED TO AMBULATE, EXPLAINED IT HELPS WITH CIRCULATION, PREVENTION OF POST OP BLOOD CLOTS, AND POST OF PNEUMONIA. PT AMBULATED WITH THE USE OF WALKER FROM HIS ROOM AND OUT INTO THE HALLWAY X 2. PT TOLERATED AMBULATION WELL. ENCOURAGED TO USE CALL LIGHT FOR ASSISTANCE, CALL [place]ANN[place] WITHIN REACH, BILATERAL SCDs IN PLACE, BED ALARM IN PLACE.
[2025-06-25] VITALS: BP 144/86; PULSE 84; RESP 20; TEMP 98.3
[2025-06-25] MEDS: CYCLOBENZAPRINE HCL 10 MG TABLET PO PRN (03:19)
[2025-06-25 04:00] VITALS: BP 134/81; PULSE 84; RESP 19; TEMP 98.1
[2025-06-25 04:55] LABS: NUCLEATED RED BLOOD CELLS 0.0 % (0.0-0.19); PLATELET COUNT (AUTO) 177.0 K/uL (130-400); RED BLOOD CELL COUNT(AUTO) 3.52 MIL/uL (4.50-6.20); RED CELL DISTRIBUTION WIDTH 13.0 % (11.0-15.5); WHITE BLOOD COUNT (AUTO) 10.5 K/uL (4.8-10.8)
[2025-06-25 05:00] LABS: CREATININE 0.9 mg/dL (0.5-1.3); GLOMERULAR FILTR. RATE CALC 94.0 mL/min (>90); GLUCOSE,RANDOM 136.0 mg/dL (70-105); SODIUM SERUM 138.0 mmol/L (136-145); UREA NITROGEN, BLOOD 18.0 mg/dL (7-18)
[2025-06-25] MEDS: PoTASSium chloRIDE 20MEQ ER 20 MEQ ERTAB PO PRN (06:00)
[2025-06-25 08:00] VITALS: BP 170/83; PULSE 85; RESP 18; TEMP 99.7; O2SAT 98
--- NOTE | 2025-06-25 08:17 | PN ---
Ortho postop day one. This morning the patient is out of bed sitting in a chair alternating extension and flexion. The Dalton bandage has been removed from the extremity. The dressing is intact. Ice is present to the anterior joint. Gastrocnemius a soft nontender. Negative Homans. Vital signs have remained stable. Afebrile. Laboratory results reviewed. Noted to have a drop in hemoglobin and hematocrit as expected after total hip arthroplasty. Patient is currently asymptomatic we will continue to observe and treat per protocol as necessary. Reinforced incentive spirometry. Currently SCD sleeves are not on but they are present. Operative findings discussed with the patient. Ambulated with therapy about 75 ft yesterday. Anticipated discharge goal is home health/PT and is eager to leave today if possible. Pending further physical this morning. Assessment: Status post left total knee arthroplasty. Acute postoperative blood loss anemia. Plan: Continue with Dr. Mulligan's TKA protocol and discharge planning. Acute postoperative blood loss anemia addressed with the protocol as necessary Vitals/Labs Vital Signs Date Time Temp Pulse Resp B/P (MAP) Pulse Ox O2 Delivery O2 Flow Rate FiO2 06/25/25 04:00 98.1 84 19 134/81 94 Room Air 06/24/25 20:00 0 21 Laboratory Tests 06/25/25 04:29 Medications Current Medications Ketorolac Tromethamine 30 mg STK-MED ONCE .ROUTE; Start 06/24/25 at 06:25; Stop 06/24/25 at 06:25; Status DC Ropivacaine 150 mg STK-MED ONCE .ROUTE; Start 06/24/25 at 06:25; Stop 06/24/25 at 06:25; Status DC Cefazolin Sodium 2 gm STK-MED ONCE .ROUTE; Start 06/24/25 at 06:39; Stop 06/24/25 at 06:39; Status DC Sodium Chloride 1,000 ml @ As Directed STK-MED ONCE IV; Start 06/24/25 at 06:39; Stop 06/24/25 at 06:39; Status DC Lidocaine HCl 100 mg STK-MED ONCE .ROUTE; Start 06/24/25 at 06:55; Stop 06/24/25 at 07:00; Status DC Propofol 200 mg STK-MED ONCE IV; Start 06/24/25 at 06:55; Stop 06/24/25 at 07:00; Status DC Rocuronium [place] 50 mg STK-MED ONCE .ROUTE; Start 06/24/25 at 06:55; Stop 06/24/25 at 07:00; Status DC Fentanyl Citrate 100 mcg STK-MED ONCE .ROUTE; Start 06/24/25 at 06:55; Stop 06/24/25 at 07:00; Status DC Ephedrine Sulfate 50 mg STK-MED ONCE .ROUTE; Start 06/24/25 at 07:34; Stop 06/24/25 at 07:34; Status DC Tranexamic Acid 1,000 mg STK-MED ONCE .ROUTE; Start 06/24/25 at 08:03; Stop 06/24/25 at 08:04; Status DC Fentanyl Citrate 100 mcg STK-MED ONCE .ROUTE; Start 06/24/25 at 08:07; Stop 06/24/25 at 08:07; Status DC Propofol 200 mg STK-MED ONCE IV; Start 06/24/25 at 08:07; Stop 06/24/25 at 08:07; Status DC Cefazolin Sodium 2 gm STK-MED ONCE IVPB Last administered on 06/24/25at 07:31; Start 06/24/25 at 07:31; Stop 06/24/25 at 08:10; Status DC Ropivacaine 150 mg STK-MED ONCE IJ Last administered on 06/24/25at 07:53; Start 06/24/25 at 07:53; Stop 06/24/25 at 08:10; Status DC Ketorolac Tromethamine 30 mg STK-MED ONCE IJ Last administered on 06/24/25at 07:53; Start 06/24/25 at 07:53; Stop 06/24/25 at 08:33; Status DC Tranexamic Acid 1,000 mg STK-MED ONCE IV Last administered on 06/24/25at 07:52; Start 06/24/25 at 07:52; Stop 06/24/25 at 08:33; Status DC Ondansetron HCl 4 mg STK-MED ONCE .ROUTE; Start 06/24/25 at 09:12; Stop 06/24/25 at 09:12; Status DC Dexamethasone Sodium Phosphate 10 mg STK-MED ONCE .ROUTE; Start 06/24/25 at 09:12; Stop 06/24/25 at 09:12; Status DC Tranexamic Acid 1,000 mg STK-MED ONCE .ROUTE; Start 06/24/25 at 09:15; Stop 06/24/25 at 09:15; Status DC Sodium Chloride 1,000 ml @ 100 mls/hr Q10H IV Last administered on 06/24/25at 11:29; Start 06/24/25 at 09:30; Stop 06/25/25 at 09:29 Polyethylene Glycol 17 gm DAILY PO; Start 06/25/25 at 09:00; Stop 07/25/25 at 08:59 Bisacodyl 10 mg DAILY PRN RC; Start 06/27/25 at 09:30; Stop 07/27/25 at 09:29 Ketorolac Tromethamine 15 mg Q6H PRN IV; Start 06/25/25 at 09:30; Stop 06/30/25 at 09:29 Ferrous Fumarate 324 mg DAILY PRN PO; Start 06/24/25 at 09:30; Stop 07/24/25 at 09:29 Ondansetron HCl 4 mg Q6H PRN IVP; Start 06/24/25 at 09:30; Stop 07/24/25 at 09:29 Calcium Carbonate 500 mg Q12H PRN PO; Start 06/24/25 at 09:30; Stop 07/24/25 at 09:29 Cefazolin Sodium 2 gm Q8H IVP Last administered on 06/24/25at 22:26; Start 06/24/25 at 14:30; Stop 06/24/25 at 22:31; Status DC Cyclobenzaprine HCl 5 mg Q8H PRN PO Last administered on 06/25/25at 03:19; Start 06/24/25 at 09:30; Stop 07/24/25 at 09:29 Aspirin 325 mg DAILY PO; Start 06/25/25 at 09:00; Stop 07/25/25 at 08:59 Ketorolac Tromethamine 15 mg Q8H IV Last administered on 06/25/25at 01:30; Start 06/24/25 at 09:30; Stop 06/25/25 at 01:31; Status DC Docusate Sodium 100 mg BID PO Last administered on 06/24/25at 20:27; Start 06/24/25 at 21:00; Stop 07/24/25 at 20:59 Potassium Chloride 100 ml @ 100 mls/hr AD PRN IV; Start 06/24/25 at 09:30; Stop 07/24/25 at 09:29 Potassium Chloride 20 meq AD PRN PO; Start 06/24/25 at 09:30; Stop 07/24/25 at 09:29 Potassium Chloride 20 meq AD PRN PO Last administered on 06/25/25at 06:00; Start 06/24/25 at 09:30; Stop 07/24/25 at 09:29 Tramadol HCl 50 mg Q6H PRN PO Last administered on 06/24/25at 23:28; Start 06/24/25 at 09:30; Stop 06/29/25 at 09:29 Acetaminophen/ Hydrocodone Bitart Q4H PRN PO; Start 06/24/25 at 09:30; Stop 06/24/25 at 09:40; Status DC Bupropion HCl 300 mg DAILY PO; Start 06/25/25 at 09:00; Stop 07/25/25 at 08:59 Carvedilol 12.5 mg BID PO Last administered on 06/24/25at 20:26; Start 06/24/25 at 21:00; Stop 07/24/25 at 20:59 Clonazepam 0.5 mg BID PRN PO Last administered on 06/24/25at 16:05; Start 06/24/25 at 09:30; Stop 07/24/25 at 09:29 Gabapentin 300 mg TID PO Last administered on 06/24/25at 20:26; Start 06/24/25 at 14:00; Stop 07/24/25 at 13:59 Hydrochlorothiazide 25 mg DAILY PO; Start 06/25/25 at 09:00; Stop 07/25/25 at 08:59 Lisinopril 40 mg DAILY PO; Start 06/25/25 at 09:00; Stop 07/25/25 at 08:59 Pioglitazone HCl 15 mg DAILY PO; Start 06/25/25 at 09:00; Stop 07/25/25 at 08:59 Trazodone HCl 100 mg HS PO Last administered on 06/24/25at 20:26; Start 06/24/25 at 21:00; Stop 07/24/25 at 20:59 Buspirone HCl 15 mg TID PO Last administered on 06/24/25at 20:26; Start 06/24/25 at 14:00; Stop 07/24/25 at 13:59 Citalopram Hydrobromide 40 mg HS PO Last administered on 06/24/25at 20:27; Start 06/24/25 at 21:00; Stop 07/24/25 at 20:59 Simvastatin 40 mg HS PO Last administered on 06/24/25at 20:26; Start 06/24/25 at 21:00; Stop 07/24/25 at 20:59 Ketorolac Tromethamine 15 mg STK-MED ONCE .ROUTE; Start 06/24/25 at 10:07; Stop 06/24/25 at 10:07; Status DC Fentanyl Citrate 100 mcg STK-MED ONCE .ROUTE Last administered on 06/24/25at 10:18; Start 06/24/25 at 10:11; Stop 06/24/25 at 10:11; Status DC Insulin Human Regular INSULIN SLIDING SCAL... ACHS SQ Last administered on 06/24/25at 20:30; Start 06/24/25 at 21:00; Stop 07/24/25 at 20:59 VAL MORFIN NP Jun 25, 2025 08:17
[2025-06-25] MEDS: PIOGLITAZONE 15MG TAB PO SCH (08:23)
[2025-06-25] MEDS: CALCIUM CARB 500MG PO PRN (08:24)
[2025-06-25] MEDS: ASPIRIN 325MG EC TAB PO SCH (08:24)
[2025-06-25] MEDS: LISINOPRIL 40 MG TABLET PO SCH (08:28)
[2025-06-25] MEDS ORDERED: HYDROcodone/APAP 5/325 1 TAB TABLET PO PRN ×3 (11:00)
--- NOTE | 2025-06-25 11:30 | NUR ---
DCP PPLAN- S/P TKA, LW SISTER, BUT HAD PROVIDER 6HR/ DAILY 7 DAYS A WEEK, STATES CAN DO MOST THINGS HIMSELF, PROVIDER DOES TRANSPORT AND SHOPPING, ETC. STATES SISTER OR PROVIDER WILL TRANSPORT HOME. HOME SAFE AND ACCESSIBLE, NO FIANCNCIAL STRAIN STATES HAS A SHOWER BENCH BUT NO WKR. ORDER FOR STD WALKER OBTAINED. DARNELL OBTAINED FOR AND JOSÉ LUIS. VERBALIZED UNDERSTANDING OF PROCESS
[2025-06-25] MEDS: HYDROcodone/APAP 5/325 1 TAB TABLET PO PRN (11:43)
[2025-06-25 12:00] VITALS: BP 137/67; PULSE 97; RESP 18; TEMP 98.8
[2025-06-25 16:00] VITALS: BP 158/82; PULSE 77; RESP 16; TEMP 98.6
--- NOTE | 2025-06-25 16:00 | NUR ---
received report from nurse Grewal. patient awake and alert , complaint of pain to knee ,score 9 , will give pain med per prn order
--- NOTE | 2025-06-25 16:05 | NUR ---
PASSED ON REPORT TO OLEGARIO DAVIS TO RESUME CARE OF THIS PATIENT.
[2025-06-25] MEDS ORDERED: ASPI-891 PO (16:57)
[2025-06-25] MEDS ORDERED: DOCU-116 PO (16:57)
[2025-06-25] MEDS ORDERED: CYCL-309 PO (16:57)
[2025-06-25] MEDS ORDERED: HYDR-4060 PO (16:57)
--- NOTE | 2025-06-25 18:21 | NUR ---
ADVISED BY DEYA'Sudarshan THAT BECAUSE THE COMPUTER ORDER FOR THE WALKER WAS A TELEPHONE ORDER, MD NEEDS TO SIGN. WILL SEND PATIENT HOME WITH AMY AVILA , DR. MILES WILL SIGN TOMORROW FOR WALKER OT BE WORKED ON
--- NOTE | 2025-06-25 19:45 | NUR ---
discharge instruction provided to patient , patient verbalized understanding . attempted twice to [facility] through answering service ,spoke with Ezequiel.. informed him need to give report to a nurse. per ezequiel will inform oncall nurse . pending call back .informed day shift and ight shift charge nurse on pending report
== END 2025-06-25 19:10 | disposition home or self-care (01) ==
LOC: DAH 05:50 → DAHIP 05:51 → DAH 05:51 → 4CH 10:45
PROVIDERS: ADMIT Student in an Organized Health Care Education/Training Program; ATTEND Student in an Organized Health Care Education/Training Program
DX: M17.12 Unilateral primary osteoarthritis, left knee (principal); M25.562 Pain in left knee; D62 Acute posthemorrhagic anemia; Z98.890 Other specified postprocedural states; Z79.899 Other long term (current) drug therapy
CPT/HCPCS: 82040; 80048 ×2; 85025; 85610; 85730; 84134; 86140; 36415 ×2; 93005; 87641; 27447; 64445; 96365; 96366; 96375; 64447; 82948 ×7; 73560; 97161; 97116 ×3; 97530 ×3; 96376; 85027; G0378 ×34; A4663; J3010 ×3; J3490 ×5; J1100; J7030; J2003; J2704 ×2; J2405; J1885 ×5; J2795 ×2; J1815; J0690 ×4; C1776 ×2; A4649 ×2; C1713; A6255; A5120; A4215; A4223 ×2; A4213; A4222; A4221; A4216